=== PATIENT | female | born 1955 ===

== ENCOUNTER 2017-11-07 06:52 | Day surgery (SDC) | payer MEDICAID ==
[2016-03-08 08:27] VITALS: BMI 44.4
--- NOTE | 2017-11-07 10:03 | CP.SDSHP ---
Same Day Surgery H & P - History Proposed Procedure: colonoscopy Pre-Op Diagnosis: surveillance of rectal carcinoid tumor - Previous Medical/Surgical History Cardiac: Hypertension Endocrine/Metabolic: Thyroid Disease, Diabetes Previous Surgical History: cholecystectomy - Allergies Allergies: Allergies SEASONAL Allergy (Uncoded 11/07/17 07:05) CONGESTION - Current Medications Current Medications: reviewed, per Reconciliation - Physical Exam General Appearance: wdwn nad Vital Signs: Vital Signs 11/07/17 07:00 Temperature 97.7 F Pulse Rate 80 Respiratory 20 Rate Blood Pressure 119/61 O2 Sat by Pulse 97 Oximetry Mental Status: Alert & Oriented x3 Heart: WNL Lungs: WNL GI: WNL - {Optional Preform as Required} Abdomen: WNL - Impression Impression: surveillance colonoscopy Pt. Evaluated Today:Candidate for Anesthesia & Procedure: Yes - Date & Time Date: 11/07/17 Time: 10:03 Short Stay Discharge - Short Stay Discharge Admitting Diagnosis/Reason for Visit: RECTAL CA Disposition: HOME/ ROUTINE
[2017-11-07] MEDS ORDERED: Propofol 10 mg/ml Inj (20 ML) ONE ×2 (10:07→10:25)
[2017-11-07] MEDS ORDERED: Lactated Ringer's 500 ML IV ONE (10:07)
[2017-11-07] MEDS ORDERED: Lidocaine Hydrochloride 5 ML INJ ONE (10:08)
[2017-11-07 13:59] VITALS: O2SAT 99
[2017-11-07 14:19] VITALS: BP 117/69; PULSE 72; RESP 21; TEMP 97.1
== END 2017-11-07 11:35 | disposition home or self-care (01) ==
LOC: C.ENDO 06:52
PROVIDERS: ATTEND Internal Medicine Gastroenterology
DX: Z12.11 Encounter for screening for malignant neoplasm of colon (principal); Z87.19 Personal history of other diseases of the digestive system; K57.30 Diverticulosis of large intestine without perforation or abscess without bleeding; K64.0 First degree hemorrhoids; E11.9 Type 2 diabetes mellitus without complications; I10 Essential (primary) hypertension
CPT/HCPCS: 45378; 82948; J2704; J7120